=== PATIENT | female | born 1970 | race African-American/Black ===

== ENCOUNTER 2017-04-04 05:02 | Emergency (ER) | payer BC, OTHER ==
[2017-04-04] MEDS ORDERED: Magnesium Sulfate 2 GM/100 ML BAG ONE (06:25)
[2017-04-04] MEDS ORDERED: Metoclopramide HCl 10 MG/2 ML VIAL ONE (06:25)
[2017-04-04] MEDS ORDERED: methylPREDNISolone Sod Succ/PF 125 MG/2 ML VIAL ONE (06:25)
[2017-04-04] MEDS ORDERED: Water For Inject, Bacteriostat 30 ML ONE (06:26)
[2017-04-04 07:30] LABS: #Eosinphils 0.1 thou/uL (0.0-0.7); #Lymphocytes 2.3 thou/uL (1.20-3.40); #Monocytes 0.7 thou/uL (0.11-0.59); #Neutrophils 3.5 thou/uL (1.40-6.50); %Basophils 0.6 % (0.0-1.0); %Eosinophils 1.9 % (0.0-10.0); %Lymphocytes 34.2 % (21.0-51.0); %Monocytes 10.7 % (0.0-10.0); Hematocrit 43.3 % (36.0-47.0); Mean Platelet Volume 7.4 fL (7.4-10.4); Red Blood Cell (RBC) Count 4.58 mill/uL (4.20-5.40); White Blood Cell (WBC) Count 6.7 thou/uL (4.8-10.8)
--- NOTE | 2017-04-04 07:46 | CT ---
PRELIMINARY REPORT/[facility]/EMERGENCY AFTER HOURS PROCEDURE: EXAM: CT Head Without Intravenous Contrast CLINICAL HISTORY: 47 years old, female; Pain; Headache; Headache not specified; Patient HX: Right sided headache for t[place] rivera, saw her primary doctor and was placed on steroid and it has helped, ran out of steroid three d ays ago, and today woke up with headache and vomited. TECHNIQUE: Axial computed tomography images of the head/brain without intravenous contrast. All CT scans at [facility] facility use one or more dose reduction techniques, viz.: automated exposure control; ma/kV adjust ment per patient size (including targeted exams where dose is matched to indication; i.e. head); or iterative reconstruction technique. COMPARISON: No relevant prior studies available. FINDINGS: No definite or depressed skull fracture. Included paranasal sinuses are essentially clear. No acute intracranial hemorrhage or mass effect. Ventricle size is normal for age. No definite acute infarct by CT. IMPRESSION: No acute intracranial bleed or mass effect. Thank you for allowing us to participate in the care of your patient. Dictated and Authenticated by: Kit Weiss MD 04/04/2017 6:48 AM Central Time ([place] \T\ [place]) FINAL REPORT CT BRAIN WITHOUT CONTRAST: Date: 04/04/17 HISTORY: Right-sided headache for weeks. Vomiting. Headache. COMPARISON: None. FINDINGS/IMPRESSION: Findings and impression are concordant with the preliminary report. POS: MED
[2017-04-04] MEDS ORDERED: Ketorolac Tromethamine 30 MG/ML VIAL ONE (08:24)
== END 2017-04-04 08:45 | disposition home or self-care (01) ==
LOC: ERS 05:02
DX: R51 Headache (principal); Z79.899 Other long term (current) drug therapy
CPT/HCPCS: 70450; 85025; 85652; 86140; 96365; 96375; J1885; J2765; J2930; J3475